=== PATIENT | male | born 1945 | race Caucasian/White ===

== ENCOUNTER 2024-12-30 16:57 | Observation (INO) | payer MEDICARE | END 2024-12-31 17:03 | disposition home or self-care (01) | LOC: ER 16:57 → ERHOLD 16:58 → MEDS 12-31 01:56 | PROVIDERS: ADMIT Student in an Organized Health Care Education/Training Program | DX: G45.9 Transient cerebral ischemic attack, unspecified (principal); J32.4 Chronic pansinusitis; M75.102 Unspecified rotator cuff tear or rupture of left shoulder, not specified as traumatic; I25.10 Atherosclerotic heart disease of native coronary artery without angina pectoris; I11.0 Hypertensive heart disease with heart failure; I50.22 Chronic systolic (congestive) heart failure; E78.5 Hyperlipidemia, unspecified; I25.2 Old myocardial infarction; Z87.891 Personal history of nicotine dependence; Z88.5 Allergy status to narcotic agent; Z79.82 Long term (current) use of aspirin; Z79.899 Other long term (current) drug therapy ==